=== PATIENT | female | born 1970 | race American Indian/Alaskan Native ===

== ENCOUNTER 2019-04-15 11:45 | Day surgery (SDC) | payer BC, OTHER ==
[~2019-04-15] VITALS: Ht 167.6 cm; Wt 97.5 kg
[~2019-04-15 11:45] MED LIST: FISH OIL 1,0001 EAC3 PO; VITAMIN D1000 UNIT PO
[2019-04-15] MEDS ORDERED: MAGNESIUM CITR100 MG PO (12:17)
[2019-04-15] MEDS ORDERED: PROBIOTIC1 EAC2 PO (12:17)
--- NOTE | 2019-04-15 14:39 | NUR ---
04/15/19 1439 Shanti Scott 1433 PT ARRIVED TO PACU ON 3L VIA MASK, RESP EVEN AND UNLABORED. PT DENIES NAUSEA AND PAIN. PT AWAKE OFF AND ON. PLAN OF CARE DISCUSSED AND PT ENCOURAGED TO PASS GAS. 1434 PT ROLLED TO BACK. 1436 O2 REMOVED.
--- NOTE | 2019-04-16 17:19 | OR ---
[facility] [address], [place] [address] Signed DATE OF OPERATION: 04/15/2019 SURGEON: Gael Lee MD PREOPERATIVE DIAGNOSIS: Colon screening. POSTOPERATIVE DIAGNOSES: 1. Diverticular changes of sigmoid and left colon. 2. Very small polyp of cecum. PROCEDURE: Total colonoscopy to cecum with cold morcellation polypectomy x1. ANESTHESIA: Intravenous sedation, fentanyl 150 mcg, and Versed 7 mg. INDICATION: This 48-year-old [place] woman is referred by ROMEO Ruggiero of [facility] for screening colonoscopy. She is symptom free having no bleeding, diarrhea or constipation. She has no family history of colon cancer. She is in good health overall, though she does have obesity. I had recommended to her a consideration for a keto diet, which she initiated and has lost 8 pounds, for which she is quite pleased. She is admitted at this time to undergo screening colonoscopy. She understands the risks of bleeding, infection, and perforation. FINDINGS: The prep was excellent. Complete colonoscopy was undertaken to the cecum. There were scattered diverticula throughout the sigmoid and left colon, some small and some large. There was no sign of stricture. In the cecum itself was a very small polyp, probably hyperplastic, but uncertain. Biopsies were obtained, though the position for the polyp was rather difficult. The remaining colon was normal. DESCRIPTION OF PROCEDURE: The patient was brought to the endoscopy suite and placed in lateral decubitus position, given intravenous sedation to a point of slurred speech and nystagmus. Digital rectal examination was normal. The Olympus video colonoscope was passed in the rectum and manipulated throughout the colon, ultimately intubating the cecum. Abdominal wall stabilization was beneficial in Electronically Signed By: GAEL LEE MD 04/16/19 1719 PATIENT NAME: SONJA BALDERAS OPERATIVE REPORT DATE OF : 66 REPORT #: [id number] PHYSICIAN: GAEL LEE MD PCP: ENE BUNCH REPORT IS CONFIDENTIAL AND NOT TO BE RELEASED WITHOUT AUTHORIZATION [facility] [address], [place] [address] Signed helping to fully intubate the cecum. Ileocecal valve was normal as was the appendiceal orifice. There was a small area consistent with a small polyp of the cecum, was difficult to orient the biopsy forceps to biopsy, but ultimately it was accomplished, I believe. The scope was then withdrawn from that area. Examination throughout undertaken showed no sign of polyps or colitis, but did show diverticulosis throughout including most dominantly the sigmoid and left colon. Retroflexed view of the rectum showed minimal hemorrhoidal changes. Scope was removed. The patient was taken to recovery room in good condition. CONCLUDING DIAGNOSES: 1. Diverticulosis. 2. Possible small polyp of cecum (excised). PLAN: Recommend high-fiber diet. Recommend repeat colonoscopy in 5 years sooner if clinically indicated. She will return to the ongoing care of ROMEO Ruggiero, of [facility]. MD DEO Mcconnell/URVASHI /[id number] cc: ROMEO Ruggiero Copies: ~ Electronically Signed By: GAEL LEE MD 04/16/19 1719 PATIENT NAME: MANUEL LEWISSONJA OPERATIVE REPORT DATE OF : 66 REPORT #: [id number] PHYSICIAN: GAEL LEE MD PCP: ENE BUNCH REPORT IS CONFIDENTIAL AND NOT TO BE RELEASED WITHOUT AUTHORIZATION
== END 2019-04-15 15:14 | disposition home or self-care (01) ==
LOC: OPS 11:45 → DS 13:00 → OPS 13:00
PROVIDERS: Surgery
PROC: 0DBH8ZZ Excision of Cecum, Via Natural or Artificial Opening Endoscopic (ICD-10-PCS; principal; 2019-04-15 13:00)
DX: Z12.11 Encounter for screening for malignant neoplasm of colon (principal); K63.5 Polyp of colon; K57.30 Diverticulosis of large intestine without perforation or abscess without bleeding; K64.9 Unspecified hemorrhoids; E66.01 Morbid (severe) obesity due to excess calories; Z90.49 Acquired absence of other specified parts of digestive tract; Z88.1 Allergy status to other antibiotic agents; Z68.34 Body mass index [BMI] 34.0-34.9, adult
CPT/HCPCS: 99153; G0500; J2250; J3010; J7120

== ENCOUNTER 2024-12-16 13:05 | Day surgery (SDC) | payer BC, OTHER ==
[~2024-12-16] VITALS: Ht 167.6 cm; Wt 100.0 kg
[~2024-12-16 13:05] MED LIST changes: +FLUTICASONE PRO16 GM NAS; +IBLOOD GLUCOSE TEST STRIP 1 EA TEST VI PRN; +LACTATED RINGER'S 1,000 ML IV SCH; +LIDOCAINE HCL 1% 5 ML SDV INJ ONE; +LIPITOR20 MG PO; +MAGNESIUM CITR100 MG PO; +MIDAZOLAM HCL 5 MG/5 ML VIAL IV PRN; +PROBIOTIC1 EAC2 PO; +fentaNYL citrate 100 MCG/2 ML VIAL IV PRN
[2024-12-16 13:25] VITALS: BP 134/78
[2024-12-16] MEDS ORDERED: TURMERIC500 M3 PO (13:25)
[2024-12-16] MEDS ORDERED: fentaNYL citrate 100 MCG/2 ML VIAL ONE ×2 (13:31→14:12)
[2024-12-16] MEDS ORDERED: MIDAZOLAM HCL 5 MG/5 ML VIAL ONE (13:32)
--- NOTE | 2024-12-16 14:49 | NUR ---
12/16/24 1448 Varsha Wilson 1443-PATIENT ARRIVED TO PACU ON 2L NC RR EVEN. PATIENT LAYING LEFT LATERAL REACTIVE TO VERBAL STIMULI OPENING EYES. BILATERAL EYES ARE A LITTLE RED DENIES PAIN OR NAUSEA. ABDOMEN SOFT. IVF INFUSING. PATIENT REPOSITIONED TO BACK HOB ELEVATED. DOZES BACK TO SLEEP. SR HR 70'S
[2024-12-16 15:21] VITALS: BP 124/80
--- NOTE | 2024-12-17 17:07 | PATH ---
[facility] [address] [place] [address], [place] [address] Signed SPECIMEN(S): A TRANSVERSE COLON POLYP SPECIMEN(S): B SIGMOID POLYP SPECIMEN SOURCE: A. TRANSVERSE COLON POLYP B. SIGMOID POLYP CLINICAL HISTORY: Colon polyp FINAL PATHOLOGIC DIAGNOSIS: A. Transverse colon polyp: - Hyperplastic polyp (two fragments). B. Sigmoid polyp: - Tubular adenoma (one fragment). JVR:clv MICROSCOPIC EXAMINATION: Histologic sections of all submitted blocks are examined by light microscopy. These findings, together with the gross examination, support the pathologic diagnosis. GROSS DESCRIPTION: A. The specimen, labeled and designated "Maycolizandro Robbins, transverse colon polyp," is received in formalin and consists of two zavala soft tissue fragments, ranging from 0.5-0.8 cm. Entirely submitted in (A1). B. The specimen, labeled and designated "Mayco Robbins, sigmoid polyp," is received in formalin and consists of one zavala soft tissue fragment, 0.5 cm. Entirely submitted in (B1). VB (under the direct supervision of a pathologist) The Gross Description was prepared using a voice recognition system. The report was reviewed for accuracy; however, sound-alike word errors, addition and/or deletions may occur. If there is any question about this report, please contact Client Services. PERFORMING LABORATORY: Technical component was performed by [facility], [address] [place] [id number] (CLIA# [id number]). Professional interpretation was performed by [facility], [address] [place] [address], [place] [address] (CLIA#: [id number]). PATIENT NAME: SONJA BALDERAS PATHOLOGY DATE OF : 66 REPORT #: [id number] PHYSICIAN: [facility] PCP: MARIA ELENA DAVENPORT REPORT IS CONFIDENTIAL AND NOT TO BE RELEASED WITHOUT AUTHORIZATION [facility] [address] [place] [id number] Signed Diagnostician: Amado Martin MD Pathologist Electronically Signed 12/17/2024 Copies: ~ PATIENT NAME: SONJA BALDERAS PATHOLOGY DATE OF : 66 REPORT #: [id number] PHYSICIAN: [facility] PCP: MARIA ELENA DAVENPORT REPORT IS CONFIDENTIAL AND NOT TO BE RELEASED WITHOUT AUTHORIZATION
--- NOTE | 2024-12-18 12:34 | OR ---
[facility] [address] [place], [place] [address] Signed DATE OF OPERATION: 12/16/2024 SURGEON: Gael Lee MD PREOPERATIVE DIAGNOSIS: History of polyp 2019 (lymphoid aggregate rather than adenoma). POSTOPERATIVE DIAGNOSES: 1. Polyps x2. 2. Diverticulosis. PROCEDURE: Total colonoscopy to cecum with hot snare polypectomy x1 and cold snare polypectomy x1. ANESTHESIA: Intravenous sedation fentanyl 150 mcg, Versed 8 mg. INDICATION: This 54-year-old woman is a patient of CHUY Oro, at [facility]. She is known to me from the past having undergone colonoscopy in 2019 at which time, she was thought to have a cecal polyp. This proved to be a lymphoid aggregate rather than an adenoma. She currently has no symptoms of bleeding, diarrhea, or constipation and is here in screening colonoscopy on the basis of her prior findings. She understands the risk of colonoscopy including but not limited to bleeding, infection, and perforation and wished to proceed. FINDINGS: The prep was quite good. Complete colonoscopy was undertaken of the cecum with full intubation of the cecum. There were no abnormalities of the cecum in any way. There was a polyp that was sessile at approximately 1 cm at the right transverse colon and another at the rectosigmoid. Both were excised with snare technique one with hot snare technique, the other cold. She had a few diverticula of the sigmoid, but not many and they were not large. DESCRIPTION OF PROCEDURE: The patient was brought to the endoscopy suite and placed in lateral decubitus position, given intravenous sedation to the point of slurred speech and nystagmus. Full cardiopulmonary monitoring was maintained. Digital rectal examination was normal. An Olympus video colonoscope was passed in the rectum and manipulated throughout the Electronically Signed By: GAEL LEE MD 12/18/24 1234 PATIENT NAME: SONJA BALDERAS OPERATIVE REPORT DATE OF : 66 REPORT #: [id number] PHYSICIAN: GAEL LEE MD PCP: MARIA ELENA DAVENPORT FURNACE RELINER-BC REPORT IS CONFIDENTIAL AND NOT TO BE RELEASED WITHOUT AUTHORIZATION [facility] [address] [place], [place] [address] Signed colon noting a few scattered diverticula of the sigmoid. The scope was ultimately passed to the right colon. Initially, it was difficult to attain full intubation with abdominal wall stabilization, so forth it was able to be accomplished. Full intubation of the cecum was noted. Irrigation was undertaken. There was no sign of abnormality of the cecum or the ileocecal valve. Scope was then withdrawn. Examination undertaken. At the right transverse colon just after the hepatic flexure based on finding of the liver, a sessile polyp approximately 1 cm in size was noted. This was excised with cold snare technique. It was retrieved and passed for Pathology. Further withdrawal showed no other abnormality other than diverticula of the sigmoid until the rectosigmoid where a similar polyp, though smaller was noted, this was excised with hot snare polypectomy technique. Retroflexed view of the rectum was normal. Scope was removed. The patient was taken to the recovery room in good condition. CONCLUDING DIAGNOSIS: Polyps x2. PLAN: Recommend repeat colonoscopy in 5 to 7 years based on polyps. Recommend high-fiber diet. She will return to the ongoing care of CHUY Oro. Gael Lee MD JM/MODL /[id number] cc: CHUY Oro Copies: ~ Electronically Signed By: GAEL LEE MD 12/18/24 1234 PATIENT NAME: SONJA BALDERAS OPERATIVE REPORT DATE OF : 66 REPORT #: [id number] PHYSICIAN: GAEL LEE MD PCP: MARIA ELENA DAVENPORT FURNACE RELINER-BC REPORT IS CONFIDENTIAL AND NOT TO BE RELEASED WITHOUT AUTHORIZATION
== END 2024-12-16 15:25 | disposition home or self-care (01) ==
LOC: DS 13:05
PROVIDERS: ATTEND Surgery
PROC: 0DBL8ZX Excision of Transverse Colon, Via Natural or Artificial Opening Endoscopic, Diagnostic (ICD-10-PCS; 2024-12-16)
PROC: 0DBN8ZX Excision of Sigmoid Colon, Via Natural or Artificial Opening Endoscopic, Diagnostic (ICD-10-PCS; principal; 2024-12-16 14:00)
DX: Z12.11 Encounter for screening for malignant neoplasm of colon (principal); D12.5 Benign neoplasm of sigmoid colon; K57.30 Diverticulosis of large intestine without perforation or abscess without bleeding; E66.9 Obesity, unspecified; Z68.35 Body mass index [BMI] 35.0-35.9, adult; Z88.1 Allergy status to other antibiotic agents; Z79.899 Other long term (current) drug therapy
CPT/HCPCS: 99153; G0500; J2250; J3010; J7121